=== PATIENT | male | born 1985 | race Caucasian/White ===

== ENCOUNTER 2018-06-13 15:56 | Observation (INO) | payer MEDICAID, OTHER ==
[~2018-06-13] VITALS: Ht 165.1 cm; Wt 61.4 kg
--- NOTE | 2018-06-13 16:10 | NUR ---
EDUCATIONAL ADVISOR: KERMIT LOPEZ NOTIFIED OF NEED FOR SITTER
--- NOTE | 2018-06-13 16:15 | NUR ---
TASK RN: FIRST CONTACT WITH PT. PT BROUGHT IN BY EMS FOR C/O SI. PT STATES, "I HAVE A PLAN BUT I WON'T TELL YOU. I AM NOT GOING TO TELL YOU. I DON'T HAVE A PLAN. I QUIT DOING METH TWO DAYS AGO. I HAVE BEEN SLEEPING IN THE BUSHES." NADN. ROOM SECURED FOR SI/HI PRECAUTIONS. BUTTON SEWER AWARE OF NEED OF SITTER. PROVIDED REPORT TO JOAN RICCI. ALL QUESTIONS ANSWERED. PT HAS PERSONAL BELONGINGS SECURED IN 3 SEPERATE PERSONAL BELONGINGS BAGS IN ED LOCKER FOR SAFE KEEPING.
[2018-06-13 16:38] LABS: BASOPHILS # (AUTO) 0.08 x10^3/uL (0-0.1); BASOPHILS % (AUTO) 1 % (0-1); EOSINOPHILS # (AUTO) 0.13 x10^3/uL (0-0.4); EOSINOPHILS % (AUTO) 2 % (1-7); LYMPHOCYTES # (AUTO) 1.49 x10^3/uL (1-3.4); LYMPHOCYTES % (AUTO) 26 % (22-44); MD NO; MEAN CORPUSCULAR HEMOGLOBIN 31.5 pg (27.5-34.5); MEAN CORPUSCULAR HGB CONC 34.1 g/dL (33.2-36.2); MEAN CORPUSCULAR VOLUME 92.2 fL (81-97); MEAN PLATELET VOLUME 7.6 fL (7.4-10.4); MONOCYTES # (AUTO) 0.74 x10^3/uL (0.2-0.8); MONOCYTES % (AUTO) 13 % (2-9); NEUTROPHILS # (AUTO) 3.41 x10^3/uL (1.8-6.8); NEUTROPHILS % (AUTO) 58 % (42-75); PLATELET COUNT 270 x10^3/uL (130-400); RED BLOOD COUNT 5.53 x10^6/uL (4.38-5.82); RED CELL DISTRIBUTION WIDTH 13.1 % (9.4-14.8)
[2018-06-13 16:50] LABS: ALANINE AMINOTRANSFERASE 27 U/L (12-78); ALBUMIN 3.6 g/dL (3.4-5.0); ANION GAP 5 mmol/L (5-15); CALCIUM 8.4 mg/dL (8.5-10.1); CHLORIDE 106 mmol/L (98-107); CREATININE 0.76 mg/dL (0.7-1.3)
[2018-06-13 16:52] LABS: SALICYLATE LEVEL < 1.7 mg/dL (2.8-20.0)
[2018-06-13 16:53] LABS: ALKALINE PHOSPHATASE 85 U/L (45-117); BILIRUBIN,TOTAL 0.6 mg/dL (0.2-1.0); TOTAL PROTEIN 7.1 g/dL (6.4-8.2)
[2018-06-13 16:55] LABS: ACETAMINOPHEN < 2 mcg/mL (10-30)
--- NOTE | 2018-06-13 17:10 | NUR ---
PT IN ROOM. ROOM SECURE. FOOD AND WATER WERE PROVIDED TO PT. SITTER IN HALLWAY. PT BECAME VERBALLY AGGRESSIVE WITH SITTER. PT REDIRECTED AND INSTRUCTED TO NOT TALK TO SITTER.
--- NOTE | 2018-06-13 17:12 | NUR ---
PT WAS UP TO PROVIDE UA. PT DROPPED UA INTO TOILET. PT BECAME VISABLY UPSET AND BEGAN YELLING FOLLOWED BY SOBBING.
--- NOTE | 2018-06-13 19:03 | NUR ---
REPORT RECIEVED FROM JOAN RICCI. ASSUMED CARE OF PT. PT SLEEPING AT THIS TIME. SITTER OUTSIDE DOOR MONITORING PT. AWARE PT STILL NEEDS TO PROVIDE URINE SAMPLE. WILL OBTAIN WHEN PT IS AWAKE.
--- NOTE | 2018-06-13 20:28 | NUR ---
PT SLEEPING. RESPIRATIONS EVEN AND UNLABORED. VITALS STABLE. WILL CONTINUE TO MONITOR.
--- NOTE | 2018-06-13 21:18 | NUR ---
PT SLEEPING. RESPIRATIONS EVEN AND UNLABORED. SITTER OUTSIDE DOOR MONITORING PT, WILL CONTINUE TO MONITOR.
[2018-06-13] MEDS ORDERED: ACETAMINOPHEN 325 MG TABLET PO PRN (22:00)
[2018-06-13] MEDS ORDERED: ONDANSETRON ODT 4 MG PO PRN (22:00)
[2018-06-13] MEDS ORDERED: POLYETHYLENE GLYCOL 17 GM PACKET PO PRN (22:00)
[2018-06-13] MEDS ORDERED: IBUPROFEN 600 MG TABLET PO PRN (22:00)
--- NOTE | 2018-06-13 22:42 | NUR ---
PT AWAKE. URINE SAMPLE PROVIDED. SENT TO LAB. PT REQUESTING WARM BLANKET AND FOOD. SANDWICH WILL BE PROVIDED LATER WHEN COFFEE CART OPENS. PT PROVIDED WITH CRACKERS AND WATER. WARM BLANKET PROVIDED. SITTER OUTSIDE DOOR MONITORING PT. ROOM REMAINS SECURE.
[2018-06-13 23:09] LABS: AMPHETAMINE SCREEN, URINE Positive (Negative); BARBITURATE SCREEN, URINE Negative (Negative); BENZODIAZEPINE SCREEN, URINE Negative (Negative); CANNABINOID SCREEN, URINE Positive (Negative); COCAINE SCREEN, URINE Negative (Negative); METHADONE SCREEN, URINE Negative (Negative); OPIATE SCREEN, URINE Negative (Negative)
--- NOTE | 2018-06-13 23:26 | NUR ---
TP RN: PT. IS SELF PAY; PACKET FAXED TO [facility]; WILL AWAIT CONFIRMATION.
--- NOTE | 2018-06-13 23:30 | NUR ---
Lisette dean in [place] - 06/13/18 at 2337 by MELCHOR jayson barber by KARLI
--- NOTE | 2018-06-13 23:41 | NUR ---
JOANNA RN: FAX TO [facility] COMPLETED.
--- NOTE | 2018-06-14 01:15 | NUR ---
PT PROVIDED WITH SNACKS. SITTER OUTSIDE DOOR MONITORING PT. ROOM REMIANS SECURE
--- NOTE | 2018-06-14 02:27 | NUR ---
PT SLEEPING. RESPIRATIONS EVEN AND UNLABORED. SITTER OUTSIDE DOOR MONITORING PT. WILL CONTINUE TO MONITOR.
--- NOTE | 2018-06-14 03:44 | NUR ---
PT SLEEPING. TOSSING AND TURNING IN BED. RESPIRATIONS EVEN AND UNLABORED. SITTER OUTSIDE DOOR. WILL CONTINUE TO MONITOR.
--- NOTE | 2018-06-14 05:34 | NUR ---
PT CONTINUES TO SLEEP. SITTER OUTSIDE DOOR MONITORING PT. ROOM REMIANS SECURE. WILL CONTINUE TO MONITOR. DIET TRAY ORDERED FOR BREAKFAST
--- NOTE | 2018-06-14 06:10 | NUR ---
REPORT FROM VIVIANA FRANCO.
--- NOTE | 2018-06-14 06:16 | NUR ---
REPORT TO JOAN ETIENNE
--- NOTE | 2018-06-14 06:33 | NUR ---
PT SLEEPING, APPEARS COMFORTABLE. BREATHING E/U. STAFF AT DOOR FOR CONTINUOUS MONITORING. NO DISTRESS NOTED.
--- NOTE | 2018-06-14 07:06 | NUR ---
REPORT TO NAYELY FRANCO.
--- NOTE | 2018-06-14 07:15 | NUR ---
RECEIVED REPORT. VSS. PT CURSES "GET THE FUCK OUT OF MY ROOM!" WHEN BEING CONTACTED FOR PT CARE . CHANGED PT'S LINEN , PROVIDED PO FLUIDS. Addendum: 06/14/18 at 0741 by DANIELLE PT REFUSES TO ANSWER QUESTIONS REGARDING MEDICAL HX, AND CURRENT REASONS FOR BEING IN THE ED.
--- NOTE | 2018-06-14 08:30 | NUR ---
BREAKFAST SERVED TO PT. PT IS RECEPTIVE.
--- NOTE | 2018-06-14 09:04 | NUR ---
PT ATE 100% OF HIS BREAKFAST. NOW RESTING ON GURNEY WITH EYES CLOSED. PO FLUIDS ARE AT BEDSIDE. PT IS WITHIN DIRECT LINE OF SIGHT.
--- NOTE | 2018-06-14 10:51 | NUR ---
PT IS RESTING ON GURNEY WITH EYES CLOSED, REPSIRATIONS ARE EVEN AND UNLABORED. SITTER IS WITHIN DIRECT LINE OF SIGHT.
--- NOTE | 2018-06-14 11:38 | NUR ---
NO CHANGE ON CONDITION. PT DOES MOVE ON GURNEY INDEPENDANTLY. PT SHOWS REGULAR CHEST RISE AND FALL, SITTER IS WITHIN DIRECT LINE OF SIGHT.
--- NOTE | 2018-06-14 12:29 | NUR ---
BREAK RN: PATIENT PROVIDED LUNCH TRAY, PATIENT SITTING COMFORTABLY IN [facility] EATING LUNCH, NADN, ALL SAFETY MEASURES IN PLACE. SITTER AT DOORWAY WITH PATIENT IN SIGHT.
--- NOTE | 2018-06-14 14:33 | NUR ---
UPDATED PT ON POC. VSS. PO FLUIDS AT BEDSIDE.
--- NOTE | 2018-06-14 15:14 | NUR ---
PT IS RESTING ON GURNEY WITH EYES CLOSED, RESPIRATIONS ARE EVEN AND UNLABORED. SITTER IS WITHIN DIRECT LINE OF SIGHT.
--- NOTE | 2018-06-14 18:53 | NUR ---
REPORT FROM NAYELY FRANCO.
--- NOTE | 2018-06-14 18:58 | NUR ---
PT EATING DINNER. STAFF AT ROOM FOR CONTINOUS SAFETY MONITORING. NO DISTRESS NOTED.
--- NOTE | 2018-06-14 19:17 | NUR ---
PT SLEEPING, BREATHING E/U, REPOSITIONS SELF. STAFF AT ROOM FOR CONTINUOUS MONITORING. NO DISTESS NOTED.
--- NOTE | 2018-06-14 19:44 | NUR ---
REPORT TO LEIGHANN FRANCO. PT TO GO TO ROOM.
[2018-06-14 19:54] VITALS: BP 119/71
[2018-06-15 07:34] VITALS: BP 118/80
[2018-06-15 20:22] VITALS: BP 114/71
[2018-06-16 07:56] VITALS: BP 120/81
[2018-06-16 19:32] VITALS: BP 120/76
[2018-06-17 07:28] VITALS: BP 113/74
[2018-06-17 19:45] VITALS: BP 108/65
[2018-06-18 08:31] VITALS: BP 106/67
[2018-06-18 19:38] VITALS: BP 106/64
[2018-06-19 07:50] VITALS: BP 113/70
[2018-06-19] MEDS ORDERED: ZIPRASIDONE 20MG CAPSULE PO SCH (17:00)
== END 2018-06-19 20:40 | disposition home or self-care (01) ==
LOC: ED 19:46 → EDIP 21:49 → SUATTDRO 21:58 → 2N 06-14 19:52
PROVIDERS: ADMIT Hospitalist; ATTEND Hospitalist
DX: R45.851 Suicidal ideations (principal); F15.90 Other stimulant use, unspecified, uncomplicated; F17.200 Nicotine dependence, unspecified, uncomplicated; F31.9 Bipolar disorder, unspecified; F60.2 Antisocial personality disorder; I10 Essential (primary) hypertension; Z59.0 Homelessness
CPT/HCPCS: 36415; 80053; 80307; 80329; 85025; 99284; G0378; G0480